=== PATIENT | female | born 1995 | race African-American/Black ===

== ENCOUNTER 2022-01-02 06:48 | Inpatient (IN) | payer MEDICAID ==
[~2022-01-02] VITALS: Ht 175.3 cm; Wt 113.5 kg
[2022-01-02] MEDS ORDERED: DIPHENHYDRAMINE 50MG/ML VIAL IM STA (06:59)
[2022-01-02] MEDS ORDERED: LORAZEPAM 2MG/ML CPJ IM STA ×2 (06:59→07:55)
[2022-01-02] MEDS ORDERED: OLANZAPINE 10 MG/VIAL IM ONE ×2 (07:00→09:15)
[2022-01-02 10:48] LABS: HEMATOCRIT. 40.5 % (36.0-48.0); HEMOGLOBIN. 13.7 g/dL (12.0-16.0); MEAN CORPUSCULAR HEMOGLOBIN 30.6 pg (28.0-32.0); MEAN CORPUSCULAR VOLUME 90.6 fL (81.0-99.0); MEAN PLATELET VOLUME 11.3 fl (7.4-10.4); PLATELET 169 x1000/uL (130-400); RED BLOOD CELL COUNT 4.47 mill/uL (4.2-5.4); RED CELL DISTRIBUTION WIDTH 13.9 % (11.6-14.6)
[2022-01-02 10:49] LABS: CLARITY URINE TURBID (CLEAR); COLOR URINE DARK YELLOW (YELLOW); KETONES URINE TRACE (NEGATIVE); LEUKOCYTE ESTERASE URINE 2+ (NEGATIVE); NITRITE URINE POSITIVE (NEGATIVE); OCCULT BLOOD URINE 3+ (NEGATIVE); PH URINE 5.5 (4.5-8.0); PROTEIN URINE 3+ (NEGATIVE); SPECIFIC GRAVITY URINE 1.022 (1.005-1.030); UROBILINOGEN URINE 0.2 E.U./dL (0.2-1.0)
[2022-01-02 11:03] LABS: *BARBITURATES SCREEN URINE NEGATIVE (NEGATIVE); METHADONE URINE SCREEN NEGATIVE (NEGATIVE); OPIATES URINE SCREEN NEGATIVE (NEGATIVE); PHENCYCLIDINE URINE SCREEN NEGATIVE (NEGATIVE)
[2022-01-02 11:07] LABS: PLATELET ESTIMATE NORMAL
[2022-01-02 11:09] LABS: *AMPHETAMINES SCREEN URINE PRESUMTIVE POSITIVE (NEGATIVE); *BENZODIAZEPINES SCREEN URINE PRESUMTIVE POSITIVE (NEGATIVE); *COCAINE SCREEN URINE PRESUMTIVE POSITIVE (NEGATIVE); CANNABINOID URINE SCREEN PRESUMTIVE POSITIVE (NEGATIVE)
[2022-01-02 11:13] LABS: CHLORIDE 110 mEq/L (98-107); ETHANOL BLOOD < 10 mg/dL
[2022-01-02] MEDS ORDERED: POTASSIUM CHLORIDE INJ 40 MEQ in DEXT 5% WATER 500 ML IV ONE (13:00)
[2022-01-02] MEDS ORDERED: LEVOFLOXACIN 750MG PREMIX 150 ML IV ONE (13:00)
[2022-01-02] MEDS ORDERED: SODIUM CHLORIDE 0.9% 1,000 ML IV ONE (13:30)
[2022-01-02] MEDS ORDERED: CLONIDINE 0.1MG TABLET PO PRN (15:00)
[2022-01-02] MEDS ORDERED: DOCUSATE SODIUM 100MG CAPSULE PO PRN (15:00)
[2022-01-02] MEDS ORDERED: ONDANSETRON HCL 4MG/2ML INJ IV PRN (15:00)
[2022-01-02] MEDS ORDERED: ACETAMINOPHEN 325MG TABLET PO PRN ×2 (15:00)
[2022-01-02] MEDS ORDERED: MAGNESIUM/ALUMINUM HYDROXIDE/SIMETHICONE 30ML UDC PO PRN (15:00)
[2022-01-02] MEDS ORDERED: GUAIFENESIN 200MG/10ML SUGAR FREE UDC PO PRN (15:00)
[2022-01-02] MEDS ORDERED: IPRATROPIUM/ALBUTEROL 0.5-3(2.5)MG/3ML NEB HHN PRN (15:00)
[2022-01-02] MEDS ORDERED: HALOPERIDOL LACTATE 5MG/ML VIAL IM PRN (15:15)
[2022-01-02] MEDS ORDERED: LORAZEPAM 2MG/ML CPJ IM PRN (15:15)
[2022-01-02 15:45] LABS: BG BASE EXCESS -2.7 mmol/L (-2.0-2.0); BG CARBOXYHEMOGLOBIN 0.6 % (0.5-1.5); BG FRACTION INSPIRED OXYGEN 21; BG HCO3 ACT 20.1 mmol/L (22.0-26.0); BG METHEMOGLOBIN 0.3 % (0.0-1.5); BG OXYHEMOGLOBIN 98.1 % (94.0-97.0); BG PCO2 29.7 mmHg (35.0-45.0); BG PH 7.448 (7.350-7.450); BG PO2 152.1 mmHg (75.0-100.0); BG SAMPLE SITE RIGHT RADIAL; BG TOTAL HEMOGLOBIN 13.8 g/dL (12.0-18.0); BG VENT MODE ROOM AIR
[2022-01-02] MEDS ORDERED: POTASSIUM CHLORIDE INJ 40 MEQ in DEXT 5% WATER 250 ML IV ONE (15:45)
[2022-01-02] MEDS: DEXT 5%/0.9% NACL 1,000 ML IV SCH (16:17)
[2022-01-02] MEDS ORDERED: KCL 20MEQ/100ML X 2 FOR TOTAL KCL 40MEQ/200ML IV SCH (16:30)
[2022-01-02] MEDS: VALPROATE SODIUM 250MG/5ML UDC PO SCH ×2 (17:00→18:15)
[2022-01-02] MEDS ORDERED: MVI, ADULT NO.1 10 ML, FOLIC ACID 1 MG, THIAMINE HCL 100 MG in SODIUM CHLORIDE 0.9% 1,0... IV SCH ×4 (17:00)
[2022-01-02] MEDS ORDERED: PIPERACILLIN/TAZOBACTAM 3.375 G in DEXTROSE 5% WATER 50 ML IV SCH (17:00)
[2022-01-02] MEDS: OLANZAPINE 5MG TABLET ODT PO SCH ×2 (17:00→18:16)
[2022-01-02] MEDS ORDERED: VANCOMYCIN 1500MG in DEXTROSE 5% WATER 250ML IV NR (17:00)
[2022-01-02] MEDS ORDERED: PIPERACILLIN/TAZ 3.375G PREMIX 50 ML IV NR (17:30)
[2022-01-02 20:25] LABS: CHLORIDE 113 mEq/L (98-107)
[2022-01-02] MEDS ORDERED: POTASSIUM CHLORIDE INJ 40 MEQ in DEXT 5% WATER 250 ML IV NR (22:45)
[2022-01-02] MEDS: ENOXAPARIN 30MG/0.3ML SYR SUBCUT SCH (22:50)
[2022-01-03] MEDS: PIPERACILLIN/TAZOBACTAM 3.375 G in DEXTROSE 5% WATER 50 ML IV SCH ×4 (00:36→21:58)
[2022-01-03] MEDS: DEXT 5%/0.9% NACL 1,000 ML IV SCH ×3 (01:45→21:58)
[2022-01-03 08:50] VITALS: BP 114/57
[2022-01-03] MEDS: ENOXAPARIN 30MG/0.3ML SYR SUBCUT SCH ×2 (09:51→21:58)
[2022-01-03] MEDS: OLANZAPINE 5MG TABLET ODT PO SCH ×2 (09:51→16:48)
[2022-01-03] MEDS: VALPROATE SODIUM 250MG/5ML UDC PO SCH ×2 (09:51→16:48)
[2022-01-03 10:00] VITALS: BP 114/57
[2022-01-03] MEDS ORDERED: POTASSIUM CHLORIDE INJ 40 MEQ in DEXT 5% WATER 250 ML IV ONE (10:00)
[2022-01-03] MEDS: VANCOMYCIN 750MG PREMIX 150 ML IV SCH (13:32)
[2022-01-03] MEDS ORDERED: VANCOMYCIN 1G PREMIX 200 ML IV SCH (17:00)
[2022-01-03 17:35] VITALS: BP 114/57
[2022-01-04 00:07] VITALS: BP 135/71
[2022-01-04] MEDS: VANCOMYCIN 750MG PREMIX 150 ML IV SCH (05:51)
[2022-01-04] MEDS: PIPERACILLIN/TAZOBACTAM 3.375 G in DEXTROSE 5% WATER 50 ML IV SCH ×3 (05:51→22:00)
[2022-01-04] MEDS: DEXT 5%/0.9% NACL 1,000 ML IV SCH ×2 (07:45→16:23)
[2022-01-04 08:00] VITALS: BP 121/73
[2022-01-04] MEDS: VALPROATE SODIUM 250MG/5ML UDC PO SCH ×3 (09:00→16:23)
[2022-01-04] MEDS: OLANZAPINE 5MG TABLET ODT PO SCH ×3 (09:00→16:23)
[2022-01-04] MEDS: ENOXAPARIN 30MG/0.3ML SYR SUBCUT SCH ×2 (09:00→21:00)
[2022-01-04 12:00] VITALS: BP 125/70
[2022-01-04 16:00] VITALS: BP 122/75
[2022-01-04 20:00] VITALS: BP 169/93
[2022-01-04 21:18] VITALS: BP 169/93
[2022-01-05] VITALS: BP 151/86
[2022-01-05] MEDS ORDERED: VANCOMYCIN 1G PREMIX 200 ML IV SCH
[2022-01-05 04:00] VITALS: BP 149/81
[2022-01-05] MEDS: PIPERACILLIN/TAZOBACTAM 3.375 G in DEXTROSE 5% WATER 50 ML IV SCH ×2 (06:44→14:43)
[2022-01-05] MEDS: DEXT 5%/0.9% NACL 1,000 ML IV SCH ×2 (06:44→14:47)
[2022-01-05 08:00] VITALS: BP 139/79
[2022-01-05 09:08] VITALS: BP 139/79
[2022-01-05] MEDS: VALPROATE SODIUM 250MG/5ML UDC PO SCH (09:37)
[2022-01-05] MEDS: ENOXAPARIN 30MG/0.3ML SYR SUBCUT SCH (09:37)
[2022-01-05] MEDS: OLANZAPINE 5MG TABLET ODT PO SCH (09:37)
[2022-01-05 12:57] VITALS: BP 125/81
[2022-01-05 12:59] LABS: BASOPHILS % 0.3 % (0.0-2.0); EOSINOPHILS % 2.1 % (0.0-5.0); HEMATOCRIT. 35.9 % (36.0-48.0); HEMOGLOBIN. 12.5 g/dL (12.0-16.0); LYMPHOCYTES % 22.7 % (20.0-50.0); MEAN CORPUSCULAR HEMOGLOBIN 31.8 pg (28.0-32.0); MEAN CORPUSCULAR VOLUME 91.2 fL (81.0-99.0); MEAN PLATELET VOLUME 11.4 fl (7.4-10.4); MONOCYTES % 8.7 % (2.0-8.0); NEUTROPHILS % 66.2 % (40.0-76.0); PLATELET 155 x1000/uL (130-400); RED BLOOD CELL COUNT 3.94 mill/uL (4.2-5.4); RED CELL DISTRIBUTION WIDTH 14.1 % (11.6-14.6)
[2022-01-05 13:03] LABS: CHLORIDE 111 mEq/L (98-107)
== END 2022-01-05 16:40 | DRG 720 ==
LOC: ER 06:48 → EDBD 13:19 → MICUSO 13:19 → EDBEDREQ 13:20 → EDBEDREQTM 13:20 → ENRESERV 16:22 → CANRESERV 17:48 → ENRESERV 17:48 → CANRESERV 20:03 → ENRESERV 20:03 → 7WST 01-03 09:33
PROVIDERS: ADMIT Hospitalist; ATTEND Hospitalist
DX: A41.9 Sepsis, unspecified organism (principal); N17.0 Acute kidney failure with tubular necrosis; E87.20 Acidosis, unspecified; Z20.822 Contact with and (suspected) exposure to COVID-19; N39.0 Urinary tract infection, site not specified; F31.9 Bipolar disorder, unspecified; E87.6 Hypokalemia; R73.9 Hyperglycemia, unspecified; F19.10 Other psychoactive substance abuse, uncomplicated; F14.10 Cocaine abuse, uncomplicated
CPT/HCPCS: 36415; 36600; 80048; 80053; 80305; 80320; 81003; 82375; 82805; 83036; 83605; 83735; 84100; 85025; 87077; 87186; 99291; C9803; J1200; J1630; J1650; J1956; J2060; J2543; J3370; J3411; J3480; J3490; J7030; J7060; U0003; U0005; G0480